=== PATIENT | female | born 1975 ===

== ENCOUNTER 2021-07-29 16:07 | Inpatient (IN) | payer MEDICAID, SELFPAY ==
[2021-07-29 17:36] VITALS: BP 123/80; PULSE 116; RESP 20; TEMP 36.7; O2SAT 95
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
[2021-07-29 20:22] VITALS: BMI 40.4
[2021-07-29] MEDS: CLONazepam 1 mg Tablet 2 MG PO (20:33)
[2021-07-29] MEDS: loperamide 2 mg Capsule PO (20:34)
[2021-07-29] MEDS: quetiapine 300 mg Tablet 600 MG PO (20:34)
[2021-07-29] MEDS: mirtazapine 15 mg Tablet 45 MG PO (20:34)
[2021-07-29] MEDS: divalproex ER 500 mg Tablet (24H) PO (20:35)
[2021-07-29] MEDS: benztropine 1 mg Tablet PO (20:39)
[2021-07-29 22:00] VITALS: BP 123/80; PULSE 116; RESP 20; TEMP 36.7; O2SAT 95
[2021-07-29] MEDS: prazosin 1 mg Capsule PO (22:04)
[2021-07-29] MEDS: OLANZapine 5 mg ODT PO (22:49)
[2021-07-29] MEDS: trazodone 50 mg Tablet PO (22:49)
[2021-07-29] MEDS: hyDROXYzine 25 mg Capsule 50 MG PO (22:49)
--- NOTE | 2021-07-29 23:40 | PC.NURSE ---
Pt frequently at the nurse's station. Pt c/o anxiety and diarrhea. Pt given loperamide 2 mg and Pt was given Cogentin 1 mg PO per pt request. At 22:49 pt continues to reports anxiety and an inability to sleep. Vistaril 50 mg and Zydis 5 mg PO given to Pt for anxiety. Trazadone also given to pt for inability to sleep.
[2021-07-30] MEDS: haloperidol 5 mg Tablet PO (00:06)
--- NOTE | 2021-07-30 00:10 | PC.NURSE ---
Pt continues to be anxious and requests more medication. Pt crying out periodically screaming while layin gin bed. Hadol 5 mg PO administered without complication.
[2021-07-30 06:00] VITALS: BP 110/70; PULSE 107; RESP 15; TEMP 37; O2SAT 97
--- NOTE | 2021-07-30 08:24 | P.NPUHP_ITS ---
Providers/Chief Complaint Admitting Physician: Vito Crouch MD Chief Complaint: SI; Depression HPI NPU History of Present Illness Felisa Romero is a 45 year old female is a direct admission from the ER n e from [facility] with the following report: Fanta is a 45-year-old patient who presents with a chief complaint of visual and auditory hallucinations. She states that she had and her both had COVID back in May. She states that he . 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 She states she has auditory and visual hallucinations that wake her up at night and throughout the day since that time. He states she would rather be than not sleep. Her family states she has been suicidal and has talked about stabbing herself and killing herself. They state that she is also hitting her head. Urine drug screen was negative There is an affidavit by Lorena Lang. Now she has a plan. She wants to chop herself up with a knife if she cannot sleep tonight. Seeing shadows. Seeing lights flicker. Hearing voices. Has only slept approximately 15-20 hours in the last month. Lashes out by screaming and throwing things. No drug abuse. I and my control her meds. Has an extremely high tolerance to all psych meds. 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 She was admitted to the neuropsychiatry unit for definitive treatment of these problems. She reports that she and her fianc? both had COVID about 2 months ago. They were both in the hospital. Her fianc? and she did not. She has been in a manic episode since that time. She is unable to sleep and her thoughts are racing. She has been hearing voices and seeing shadows. Her psychiatrist tried increasing her Seroquel from 300 up to 600 mg daily and adding Depakote 500 mg twice a day and Xanax as needed for anxiety. Unfortunately these interventions have not helped her sleep. She is been admitted to the hospital a few times. She has never had a manic episode like this. She has had some manic episodes that have lasted a few weeks. She remembers using lithium a couple of times. She felt that it made her tired. She did not like that she had to get blood drawn. She agreed to use it temporarily here to see if it could bring her down. She also agreed to increase her Depakote to 500 mg 3 times a day. She says that her psychiatrist rhys a blood level on Depakote but she does not know what it was. PAST PSYCHIATRIC HISTORY As above SOCIAL HISTORY As above Meds NPU Home Medications Medication Instructions Recorded Confirmed Last Taken Type Klonopin 2 mg PO BEDTIME 07/29/21 07/29/21 Unknown History Protonix 40 mg PO DAILY 07/29/21 07/29/21 Unknown History Remeron 45 mg PO BEDTIME 07/29/21 07/29/21 Unknown History Symbicort 160 mcg INHALATION BID PRN 07/29/21 07/29/21 Unknown History albuterol sulfate [Ventolin HFA] See Rx Instructions .ROUTE 07/29/21 07/29/21 Unknown History .COMPLEX PRN alprazolam [Xanax] 0.25 mg PO DAILY PRN 07/29/21 07/29/21 Unknown History benztropine 1 mg PO BID 07/29/21 07/29/21 Unknown History clonazepam 1 mg PO QAM 07/29/21 07/29/21 Unknown History divalproex 500 mg PO BEDTIME 07/29/21 07/29/21 Unknown History montelukast [Singulair] 10 mg PO DAILY 07/29/21 07/29/21 Unknown History prazosin 1 mg PO BEDTIME 07/29/21 07/29/21 Unknown History quetiapine 600 mg PO BEDTIME 07/29/21 07/29/21 Unknown History Allergies Allergy/AdvReac Type Severity Reaction Status Date / Time Penicillins Allergy Unknown Verified 07/29/21 21:05 Mental Status Exam MSE Comments: This is a 45-year-old overweight female who appears her stated age and is in no acute distress. She has fairly good grooming and is in hospital scrubs. psychomotor activity is normal. Speech is at a regular rate and rhythm, normal volume, good articulation, not pressured. Alert, oriented X3 Attention and concentration appears to be normal. Memory is intact Mood is depressed. Affect is very mildly dysphoric. Thought process is logical and goal-directed. Thought content: She reports hearing the voice of a nurse talking to her. She says that she has had that for the last 2 months but never previously heard voices. She also sees shadows and that is new for her. She has had numerous statements of wanting to kill herself because she cannot sleep. She denies homicidal ideation. She does not appear to be delusional. Fund of knowledge is within normal limits. Insight and judgment appear to be fairly good. Impulse control is somewhat impaired.. Vitals/I&O/Wt Last Vital Signs Temp 98.6 F 07/30/21 06:00 Pulse 107 H 07/30/21 06:00 Resp 15 07/30/21 06:00 BP 110/70 07/30/21 06:00 Pulse Ox 97 07/30/21 06:00 Weight last 48 hrs Weight 90.718 kg A&P Assessment and plan (1) Bipolar 1 disorder with moderate re: Status: Acute (2) Suicidal ideation: Status: Acute Additional A&P Information Plan: 1. Continue current medication. Add lithium carbonate twice a day today and 3 times tomorrow if tolerated. Increase Depakote to 500 mg 3 times a day. 2. Continue every 15 minute checks for safety. 3. Encourage individual, group and milieu therapies. 4. Encourage sober living treatment after discharge at the highest level of care to which she is willing to commit. 5. We will monitor for safety for herself in the community prior to discharge. Attestations NPU Medical Necessity Statement*: Inpatient hospitalization is medically necessary and the clinically appropriate intervention at this time. We will initiate medications and make changes as indicated. She will be in the hospital for over 2 midnights. 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
[2021-07-30] MEDS: CLONazepam 1 mg Tablet PO (09:22)
[2021-07-30] MEDS: pantoprazole DR 40 mg Tablet PO (09:22)
[2021-07-30] MEDS: benztropine 1 mg Tablet PO ×2 (09:22→18:18)
[2021-07-30] MEDS: montelukast sodium 10 mg Tablet PO (09:22)
[2021-07-30] MEDS: divalproex ER 500 mg Tablet (24H) PO ×2 (09:39→18:18)
[2021-07-30] MEDS: lithium carbonate 300 mg Capsule PO ×2 (09:39→18:18)
[2021-07-30 10:20] VITALS: PULSE 108; RESP 18; O2SAT 98
--- NOTE | 2021-07-30 12:52 | NPU.GN ---
[facility] Group Topic:Aggie Activities General Mood of Group Felisa did not attend or participate in group today she was sleeping.
[2021-07-30] MEDS: hyDROXYzine 25 mg Capsule 50 MG PO ×2 (13:44→19:56)
[2021-07-30 14:00] VITALS: BP 124/84; PULSE 116; RESP 20; TEMP 36.6; O2SAT 96
[2021-07-30] MEDS: trazodone 50 mg Tablet PO (19:56)
[2021-07-30] MEDS: CLONazepam 1 mg Tablet 2 MG PO (20:00)
[2021-07-30] MEDS: quetiapine 300 mg Tablet 600 MG PO (20:00)
--- NOTE | 2021-07-30 20:00 | PC.NURSE ---
Vistaril 50 mg administered for anxiety and Trazadone administered for sleep aide.
[2021-07-30] MEDS: mirtazapine 15 mg Tablet 45 MG PO (20:01)
[2021-07-30] MEDS: prazosin 1 mg Capsule PO (20:01)
[2021-07-30 20:15] LABS: Glucose Point of Care 119 mg/dL (70-110)
[2021-07-30 22:00] VITALS: BP 119/84; PULSE 119; RESP 18; TEMP 36.8; O2SAT 98
[2021-07-30] MEDS: OLANZapine 5 mg ODT PO (22:22)
--- NOTE | 2021-07-30 22:33 | PC.NURSE ---
Pt screaming off and on and then presents to the nurse's station requesting medication. Pt presents paranoid. Pt speech fast and mumbled. Zydis 5 mg administered without complication and staff walked Pt walked back to her bed.
[2021-07-31 06:00] VITALS: RESP 17
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
[2021-07-31 08:32] LABS: Valproic Acid Level 93.3 ug/mL (50-100)
[2021-07-31] MEDS: divalproex ER 500 mg Tablet (24H) PO ×2 (09:07→17:51)
[2021-07-31] MEDS: benztropine 1 mg Tablet PO ×2 (09:07→17:52)
[2021-07-31] MEDS: montelukast sodium 10 mg Tablet PO (09:07)
[2021-07-31] MEDS: lithium carbonate 300 mg Capsule PO ×2 (09:09→17:51)
[2021-07-31] MEDS: CLONazepam 1 mg Tablet PO (09:09)
[2021-07-31] MEDS: pantoprazole DR 40 mg Tablet PO (09:09)
[2021-07-31 14:00] VITALS: BP 112/73; PULSE 107; RESP 16; TEMP 36.6; O2SAT 95
[2021-07-31 19:42] VITALS: BP 124/74; PULSE 115; RESP 17; O2SAT 98
[2021-07-31] MEDS: CLONazepam 1 mg Tablet 2 MG PO (20:04)
[2021-07-31] MEDS: OLANZapine 5 mg ODT PO (20:04)
[2021-07-31] MEDS: quetiapine 300 mg Tablet 600 MG PO (20:04)
[2021-07-31] MEDS: mirtazapine 15 mg Tablet 45 MG PO (20:04)
[2021-07-31] MEDS: hyDROXYzine 25 mg Capsule 50 MG PO (20:04)
[2021-07-31] MEDS: prazosin 1 mg Capsule PO (20:04)
--- NOTE | 2021-07-31 20:04 | PC.NURSE ---
Vistaril and Zydis administered for anxiety/Agitation and Trazadone administered for sleep aide.
[2021-08-01 06:00] VITALS: RESP 16
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
[2021-08-01] MEDS: benztropine 1 mg Tablet PO ×2 (08:49→17:28)
[2021-08-01] MEDS: CLONazepam 1 mg Tablet 2 MG PO ×2 (08:49→20:03)
[2021-08-01] MEDS: dicyclomine 10 mg Capsule PO ×4 (08:50→20:04)
[2021-08-01] MEDS: lithium carbonate 300 mg Capsule PO ×3 (08:50→20:04)
[2021-08-01] MEDS: pantoprazole DR 40 mg Tablet PO (08:50)
[2021-08-01] MEDS: CLONazepam 1 mg Tablet PO (08:51)
[2021-08-01] MEDS: divalproex ER 500 mg Tablet (24H) PO ×2 (08:52→17:28)
[2021-08-01] MEDS: montelukast sodium 10 mg Tablet PO (08:52)
[2021-08-01] MEDS: hyDROXYzine 25 mg Capsule 50 MG PO (10:37)
--- NOTE | 2021-08-01 10:39 | PC.NURSE ---
PRN MED PT GIVEN 50MG VISTARIL FOR ANXIETY, WILL CONTINUE TO MONITOR.
[2021-08-01 14:00] VITALS: BP 132/60; PULSE 116; RESP 17; O2SAT 98
[2021-08-01] MEDS: quetiapine 300 mg Tablet 600 MG PO (20:03)
[2021-08-01] MEDS: prazosin 1 mg Capsule 2 MG PO (20:03)
[2021-08-01] MEDS: mirtazapine 15 mg Tablet 45 MG PO (20:04)
[2021-08-01 20:23] VITALS: BP 125/80; PULSE 110; RESP 16; O2SAT 98
[2021-08-01] MEDS: haloperidol 5 mg Tablet PO (22:53)
[2021-08-01] MEDS: OLANZapine 5 mg ODT PO (22:53)
--- NOTE | 2021-08-01 22:55 | PC.NURSE ---
PT WOKE UP HAVING A NIGHTMARE SCREAMING WHY DID HE , WHY DID HE . HALDOL 5MG PO AND ZYPREXA 5MG SL GIVEN
--- NOTE | 2021-08-02 00:30 | PC.NURSE ---
PT RESTING QUIETLY WITH BOTH EYES CLOSED.
[2021-08-02 06:00] VITALS: BP 123/84; PULSE 123; RESP 16; TEMP 36.1; O2SAT 99; BMI 40.4
--- NOTE | 2021-08-02 07:07 | W.PM.NPUPNS ---
Subjective NPU Subjective: Interval history: She is doing much better. She says that she thinks that the lithium has fixed her. She said that she went to bed at 9 PM and woke up at 4:30 AM. She was actually up at 11 PM with a nightmare and took some Haldol and Zyprexa Zydis. She evidently does not remember that. She said that her sister thinks that she needs to go into an RCF. She also told her that she could not drive if she was taking lithium. The patient does not feel that she needs to be in an RCF. She wants to go to [place] to be with her family. She was told that lithium did not make it so that you could not drive. Mental Status Exam MSE Comments: This is a 45-year-old overweight female who appears her stated age and is in no acute distress. She has fairly good grooming and is in hospital scrubs. psychomotor activity is normal. Speech is at a regular rate and rhythm, normal volume, good articulation, not pressured. Alert, oriented X3 Attention and concentration appears to be normal. Memory is intact Mood is good. Affect is euthymic. Thought process is logical and goal-directed. Thought content: She denies any auditory or visual hallucinations. She denies suicidal ideation today. She denies homicidal ideation. She does not appear to be delusional. Fund of knowledge is within normal limits. Insight and judgment appear to be fairly good. Impulse control is somewhat impaired.. Cognition: Patient Appearance: Appropriate Ability to Follow Directions: Good Patient Orientation (long list): Person, Place and Name Comprehension Ability: Mild Impairment Hallucination Type: None Delusion Description: Not Present Thought Process: Appropriate Affect: Affect Description: Appropriate Behavior: Patient Behavior: Appropriate Speech Pattern: Appropriate Vitals/I&O/Wt Last Vital Signs Temp 96.9 F L 08/02/21 06:00 Pulse 123 H 08/02/21 06:00 Resp 16 08/02/21 06:00 BP 123/84 08/02/21 06:00 Pulse Ox 99 08/02/21 06:00 Weight last 48 hrs Weight 90.718 kg A&P Assessment and plan (1) Bipolar 1 disorder with moderate re: Status: Acute (2) Suicidal ideation: Status: Acute (3) PTSD (post-traumatic stress disorder): Status: Acute Additional A&P Information This is a 45-year-old female with bipolar disorder and PTSD who reports a 2 months episode of extremely low sleep and increased energy and thought racing. Plan: 1. Continue current medication. lithium carbonate 3 times today. Increase Depakote to 500 mg 3 times a day. Increase prazosin to 2 mg. 2. Continue every 15 minute checks for safety. 3. Encourage individual, group and milieu therapies. 4. Encourage sober living treatment after discharge at the highest level of care to which she is willing to commit. 5. We will monitor for safety for herself in the community prior to discharge. Attestations NPU Medical Necessity Statement*: Inpatient hospitalization is medically necessary and the clinically appropriate intervention at this time. We will initiate medications and make changes as indicated. 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
[2021-08-02] MEDS: divalproex ER 500 mg Tablet (24H) PO ×2 (09:10→17:07)
[2021-08-02] MEDS: pantoprazole DR 40 mg Tablet PO (09:11)
[2021-08-02] MEDS: benztropine 1 mg Tablet PO ×2 (09:11→17:08)
[2021-08-02] MEDS: lithium carbonate 300 mg Capsule PO ×3 (09:11→19:37)
[2021-08-02] MEDS: montelukast sodium 10 mg Tablet PO (09:11)
[2021-08-02] MEDS: dicyclomine 10 mg Capsule PO ×4 (09:12→19:38)
[2021-08-02] MEDS: CLONazepam 1 mg Tablet PO (09:12)
[2021-08-02 14:00] VITALS: BP 106/79; PULSE 108; RESP 20; TEMP 36.7; O2SAT 98
[2021-08-02 19:21] VITALS: PULSE 111; RESP 18; O2SAT 100
[2021-08-02] MEDS: albuterol 8 gm MDI 2 PUFF INHALATION (19:21)
[2021-08-02] MEDS: CLONazepam 1 mg Tablet 2 MG PO (19:37)
[2021-08-02] MEDS: prazosin 1 mg Capsule 2 MG PO (19:38)
[2021-08-02] MEDS: quetiapine 300 mg Tablet 600 MG PO (19:38)
[2021-08-02] MEDS: mirtazapine 15 mg Tablet 45 MG PO (19:38)
[2021-08-02 19:44] VITALS: BP 109/73; PULSE 118; RESP 18; O2SAT 96
[2021-08-02] MEDS: OLANZapine 5 mg ODT PO (21:06)
--- NOTE | 2021-08-02 21:06 | PC.NURSE ---
Pt agitated and anxious. Pt told she couldn't stay on the phone for extended periods of time and Pt slammed the phone down, began screaming at staff. Pt continued screaming and cursing at staff. Pt layed in bed then got up and slammed her door shut while screaming again. Pt agreed to take PRN medication. Zydis 5mg given without complication. Pt was demanding more cogentin even though she been given it earlier, cogentin was not given at this time. Pt was able to verbally redirect after multiple attempts by staff.
[2021-08-03] VITALS (7 sets, daily range): BP systolic 119–124; BP diastolic 80–87; PULSE 113–120; RESP 15–23; TEMP 36.6–36.7; O2SAT 96–100
--- NOTE | 2021-08-03 02:02 | W.PM.NPUDCS ---
Diagnoses at Discharge Discharge Diagnosis (1) Bipolar 1 disorder with moderate re: Status: Acute (2) Suicidal ideation: Status: Acute (3) PTSD (post-traumatic stress disorder): Status: Acute Reason for Visit Reason for Visit: SI; Depression Brief History: HPI NPU History of Present Illness Felisa Romero is a 45 year old female is a direct admission from the ER note from [facility] with the following report: Fanta is a 45-year-old patient who presents with a chief complaint of visual and auditory hallucinations. She states that she had and her both had COVID back in May. She states that he . Family states he he was her herb doctor. She states she has auditory and visual hallucinations that wake her up at night and throughout the day since that time. He states she would rather be than not sleep. Her family states she has been suicidal and has talked about stabbing herself and killing herself. They state that she is also hitting her head. Urine drug screen was negative There is an affidavit by Lorena Lang. Now she has a plan. She wants to chop herself up with a knife if she cannot sleep tonight. Seeing shadows. Seeing lights flicker. Hearing voices. Has only slept approximately 15-20 hours in the last month. Lashes out by screaming and throwing things. No drug abuse. I and my control her meds. Has an extremely high tolerance to all psych meds. 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 She was admitted to the neuropsychiatry unit for definitive treatment of these problems. She reports that she and her fianc? both had COVID about 2 months ago. They were both in the hospital. Her fianc? and she did not. She has been in a manic episode since that time. She is unable to sleep and her thoughts are racing. She has been hearing voices and seeing shadows. Her psychiatrist tried increasing her Seroquel from 300 up to 600 mg daily and adding Depakote 500 mg twice a day and Xanax as needed for anxiety. Unfortunately these interventions have not helped her sleep. She is been admitted to the hospital a few times. She has never had a manic episode like this. She has had some manic episodes that have lasted a few weeks. She remembers using lithium a couple of times. She felt that it made her tired. She did not like that she had to get blood drawn. She agreed to use it temporarily here to see if it could bring her down. She also agreed to increase her Depakote to 500 mg 3 times a day. She says that her psychiatrist rhys a blood level on Depakote but she does not know what it was. PAST PSYCHIATRIC HISTORY As above SOCIAL HISTORY As above Hospital Course Hospital Course She slowly acclimated to the individual, group and milieu therapies provided. Continued on her outpatient medications with the exception of addition of lithium and increasing prazosin to 2 mg daily. she tolerated these doses and showed steady improvement during her stay. She was able to contract for safety outside hospital prior to discharge. During the hospitalization, patient had routine laboratory studies which were within normal limits except for few outliers. Additionally there was a general medical evaluation which was also within normal limits and revealed no new acute processes. Discharge Summary: At the time of discharge, lethality was denied and psychosis was resolving. Mood and anxiety were well managed. Patient endorsed a plan to follow-up with the aftercare recommendations of the treatment team. Patient was evaluated and deemed to be absent credible lethality, and had achieved the maximum benefit from an inpatient hospitalization, so was discharged. Mental Status Exam MSE Comments: This is a 45-year-old overweight female who appears her stated age and is in no acute distress. She has fairly good grooming and is in hospital scrubs. psychomotor activity is normal. Speech is at a regular rate and rhythm, normal volume, good articulation, not pressured. Alert, oriented X3 Attention and concentration appears to be normal. Memory is intact Mood is anxious. Affect is mildly dysphoric. Thought process is logical and goal-directed. Thought content: She denies any auditory or visual hallucinations. She denies suicidal ideation today. She denies homicidal ideation. She does not appear to be delusional. Fund of knowledge is within normal limits. Insight and judgment appear to be fairly good. Impulse control is somewhat impaired.. Cognition: Patient Appearance: Appropriate Ability to Follow Directions: Good Patient Orientation (long list): Person, Place and Name Comprehension Ability: Mild Impairment Hallucination Type: None Delusion Description: Not Present Thought Process: Appropriate Affect: Affect Description: Calm Behavior: Patient Behavior: Appropriate and Cooperative Speech Pattern: Appropriate and Clear Discharge Data Vitals: Last Vital Signs Temp 98.1 F 08/02/21 14:00 Pulse 118 H 08/02/21 19:44 Resp 18 08/02/21 19:44 BP 109/73 08/02/21 19:44 Pulse Ox 96 08/02/21 19:44 Discharge Plan Discharge Patient Disposition: Home Condition: Stable Prescriptions: New trazodone 100 mg Tablet 200 mg PO BEDTIME 30 Days Qty: 60 RF: 0 lithium carbonate 300 mg Capsule 300 mg PO 0900,1300 30 Days Qty: 60 RF: 0 lithium carbonate 300 mg Capsule 600 mg PO BEDTIME 30 Days Qty: 60 RF: 0 Continued Xanax 0.25 mg Tablet 0.25 mg PO DAILY PRN (Reason: Anxiety) RF: 0 Singulair 10 mg tablet 10 mg PO DAILY RF: 0 Ventolin HFA 90 mcg/actuation HFA aerosol inhaler See Rx Instructions .ROUTE .COMPLEX PRN (Reason: Shortness Of Breath) RF: 0 benztropine 1 mg tablet 1 mg PO BID RF: 0 divalproex 500 mg tablet 500 mg PO BEDTIME RF: 0 Protonix 40 mg tablet 40 mg PO DAILY RF: 0 Remeron 45 mg tablet 45 mg PO BEDTIME RF: 0 Klonopin 2 mg 2 mg PO BEDTIME RF: 0 clonazepam 1 mg 1 mg PO QAM RF: 0 quetiapine 600 mg tablet 600 mg PO BEDTIME RF: 0 Symbicort 160 mcg 160 mcg inhalation BID PRN (Reason: Shortness Of Breath) RF: 0 Changed prazosin 1 mg tablet 2 mg PO BEDTIME 30 Days Qty: 30 RF: 0 Discharge Orders: Discharge Order (Routine); Ordered 08/03/21 Ordered By: Vito Crouch Referrals: [facility] [Other] - 08/12/21 8:30 am (Medications appointment with Kiara Bell on 08/12/21 @ 8:30am. ) Discharge Diet: Regular Discharge Activity: Resume usual activity Patient Instructions: Opioid Safety Discharge Attestations NPU Time Spent in Discharge Care*: greater than 30 min Specific Discharge Activities: Specific discharge activities: educating patient, discussing with rehabilitation case coordinator/social workers/dc planners, documenting/other paperwork and evaluating patient/reviewing data Coding Level of Care Code Acute Chg FW DC note Diagnoses Bipolar 1 disorder with moderate re F31.12 Suicidal ideation R45.851 PTSD (post-traumatic stress disorder) F43.10
--- NOTE | 2021-08-03 07:10 | P.NPUPN_ITS ---
Subjective NPU Subjective: Interval history: He only slept 4 hours last night. She was up and down all night long. That is significantly worse today than the last 2 nights but dramatic improvement still from before. He is worried about the setback. Nightmares were better last night. She cannot even close her eyes during the day. She says that she continues to be shaking inside because of anxiety. She said that her body jerk sometimes when she takes antipsychotics. She would like to try some Cogentin. She says she normally takes 2 mg twice a day and it causes vision problems but she would rather have that than the jerking. She agreed to try 1 mg. She also wanted more to help her sleep. We agreed to try trazodone. If melatonin was on the formulary we can try that. We will also check a lithium level and see if we can increase it to 1200 mg daily. Mental Status Exam MSE Comments: This is a 45-year-old overweight female who appears her stated age and is in no acute distress. She has fairly good grooming and is in hospital scrubs. psychomotor activity is normal. Speech is at a regular rate and rhythm, normal volume, good articulation, not pressured. Alert, oriented X3 Attention and concentration appears to be normal. Memory is intact Mood is anxious. Affect is mildly dysphoric. Thought process is logical and goal-directed. Thought content: She denies any auditory or visual hallucinations. She denies suicidal ideation today. She denies homicidal ideation. She does not appear to be delusional. Fund of knowledge is within normal limits. Insight and judgment appear to be fairly good. Impulse control is somewhat impaired.. Cognition: Patient Appearance: Appropriate Ability to Follow Directions: Good Patient Orientation (long list): Person, Place and Name Comprehension Ability: Mild Impairment Hallucination Type: None Delusion Description: Not Present Thought Process: Appropriate Affect: Affect Description: Calm Behavior: Patient Behavior: Appropriate and Cooperative Speech Pattern: Appropriate and Clear Vitals/I&O/Wt Last Vital Signs Temp 97.9 F 08/03/21 06:00 Pulse 113 H 08/03/21 06:00 Resp 23 H 08/03/21 06:00 BP 124/83 08/03/21 06:00 Pulse Ox 96 08/03/21 06:00 Weight last 48 hrs Weight 90.718 kg A&P Assessment and plan (1) Bipolar 1 disorder with moderate re: Status: Acute (2) Suicidal ideation: Status: Acute (3) PTSD (post-traumatic stress disorder): Status: Acute Additional A&P Information This is a 45-year-old female with bipolar disorder and PTSD who reports a 2 months episode of extremely low sleep and increased energy and thought racing. Plan: 1. Continue current medication. lithium carbonate 3 times. Check level Depakote to 500 mg 3 times a day. prazosin to 2 mg. Cogentin 1mg BID. Trazodone 200 mg QHS 2. Continue every 15 minute checks for safety. 3. Encourage individual, group and milieu therapies. 4. Encourage sober living treatment after discharge at the highest level of care to which she is willing to commit. 5. We will monitor for safety for herself in the community prior to discharge. Attestations NPU Medical Necessity Statement*: Inpatient hospitalization is medically necessary and the clinically appropriate intervention at this time. We will initiate medications and make changes as indicated. Coding Level of Care Code Acute Chief [employer] [place] Diagnoses Bipolar 1 disorder with moderate re F31.12 Suicidal ideation R45.851 PTSD (post-traumatic stress disorder) F43.10
[2021-08-03] MEDS: divalproex ER 500 mg Tablet (24H) PO ×2 (08:26→17:10)
[2021-08-03] MEDS: pantoprazole DR 40 mg Tablet PO (08:26)
[2021-08-03] MEDS: lithium carbonate 300 mg Capsule PO ×2 (08:26→12:20)
[2021-08-03] MEDS: montelukast sodium 10 mg Tablet PO (08:26)
[2021-08-03] MEDS: CLONazepam 1 mg Tablet PO (08:26)
[2021-08-03] MEDS: benztropine 1 mg Tablet PO ×3 (08:26→17:10)
[2021-08-03] MEDS: dicyclomine 10 mg Capsule PO ×4 (08:26→19:50)
[2021-08-03 08:37] LABS: Lithium 0.6 mmol/L (0.6-1.2)
--- NOTE | 2021-08-03 10:58 | NPU.GN ---
[facility] Group Topic: Ice Breakers General Mood of Group: Felisa did attend and participate in group today. She was social, hygiene was good , and seems mentally stable.
[2021-08-03] MEDS: acetaminophen 325 mg Tablet 650 MG PO (12:20)
--- NOTE | 2021-08-03 13:21 | PC.NURSE ---
PRN C/o toothache at 1220, took PRN Tylenol to good effects.
[2021-08-03] MEDS: albuterol 8 gm MDI 2 PUFF INHALATION (16:36)
[2021-08-03] MEDS: quetiapine 300 mg Tablet 600 MG PO (19:48)
[2021-08-03] MEDS: lithium carbonate 300 mg Capsule 600 MG PO (19:48)
[2021-08-03] MEDS: CLONazepam 1 mg Tablet 2 MG PO (19:49)
[2021-08-03] MEDS: mirtazapine 15 mg Tablet 45 MG PO (19:49)
[2021-08-03] MEDS: prazosin 1 mg Capsule 2 MG PO (19:49)
[2021-08-03] MEDS: trazodone 100 mg Tablet 200 MG PO (19:50)
== END 2021-08-03 21:28 | disposition home or self-care (01) | DRG 885 ==
PROVIDERS: Admitting Provider Psychiatry & Neurology Psychiatry; Visit Provider Psychiatry & Neurology Psychiatry
DX: F31.12 Bipolar disorder, current episode manic without psychotic features, moderate (principal); R45.851 Suicidal ideations; Z86.16 Personal history of COVID-19; F43.10 Post-traumatic stress disorder, unspecified
CPT/HCPCS: 36415; 36416; 80164; 80178; 82962; 94640; 97150; 97165; J3535